=== PATIENT | male | born 1965 | race African-American/Black ===

== ENCOUNTER 2016-05-10 05:25 | Observation (INO) | payer OTHER ==
[2016-05-02 08:53] LABS: HEMATOCRIT 46.1 % (42.0-52.0); HEMOGLOBIN 15.5 gm/dL (14.0-18.0); MCH 27.8 pg (26.0-34.0); MCHC 33.6 g/dL (28.0-37.0); MCV 82.9 fL (80.0-100.0); RBC 5.56 mil/uL (4.50-6.00); RDW 13.9 % (10.5-14.5); URINE BILIRUBIN NEGATIVE (Negative); URINE BLOOD NEGATIVE (Negative); URINE COLOR YELLOW; URINE GLUCOSE-RANDOM* NEGATIVE (Negative); URINE KETONES NEGATIVE (Negative); URINE LEUKOCYTES-REFLEX NEGATIVE (Negative); URINE PROTEIN (DIPSTICK) NEGATIVE (Negative); URINE SPECIFIC GRAVITY 1.025 (1.003-1.035); URINE UROBILINOGEN 0.2 E.U./dl (0.2-1.0); WBC 5.6 thou/uL (4.0-11.0)
[2016-05-02 09:03] LABS: ALBUMIN 4.1 g/dL (3.4-5.0); CALCIUM 9.3 mg/dL (8.5-10.1); CREATININE 1.4 mg/dL (0.6-1.3)
[2016-05-02 09:07] LABS: PROTIME 10.6 Seconds (9.3-11.4)
[~2016-05-10] VITALS: Ht 165.1 cm; Wt 90.7 kg
[2016-05-10] VITALS (7 sets, daily range): BP systolic 115–129; BP diastolic 81–92
--- NOTE | ~2016-05-10 | O ---
[facility] [place] [address] OPERATIVE REPORT Name: LUCAS RUCKER Room #: 544-P [facility] Roscoe Salter#: [id number] Admission: 05/10/16 Attend Phys: Ministerio Simons MD Discharge: 05/10/16 Date of : 65 Report #: [id number] THIS REPORT FOR: //name// CC: Paul Blanco [facility] physician/PCP Ministerio Simons DATE OF SERVICE: 05/10/2016 PREOPERATIVE DIAGNOSIS: Right hip osteoarthritis. POSTOPERATIVE DIAGNOSIS: Right hip osteoarthritis. PROCEDURE: Right total hip arthroplasty. SURGEON: Ministerio Simons MD. MANAGER OF APPLICATION DEVELOPMENT: Magda Gonzalez PA-C. ANESTHESIA: General endotracheal. IMPLANTS: [employer] size 52 R3 acetabular cup with one acetabular screw, size 12, high offset Synergy press-fit stem, with a size 36-3 Oxinium head. ESTIMATED BLOOD LOSS: 100 mL. COMPLICATIONS: None. SPECIMENS: None. CONDITION UPON LEAVING THE OPERATING ROOM: Stable. INDICATIONS FOR PROCEDURE: The patient is a 51-year-old gentleman with right hip osteoarthritis. He previously had a right hip arthroscopy for labral repair, did not receive retirement relief from this. He has had cortisone injections that provided only temporary relief, and after discussion with him, he elected for right total hip arthroplasty. DESCRIPTION OF PROCEDURE: Risks, benefits, alternatives, and complications were discussed in detail with the patient including but not limited to risk of anesthesia, risk of damage to nerves, arteries, blood vessels, risk for infection, bleeding, risk for continued hip pain, leg length discrepancy, instability, and need for reoperation. An informed consent was obtained from the patient. The right hip was appropriately marked in the preoperative holding area. IV Ancef was given for preoperative antibiotics. He was brought to the operating room and placed in the supine position on the operating room table. [address] [address] OPERATIVE REPORT Name: LUCAS RUCKER Room #: 544-P [facility] Roscoe Salter#: [id number] Admission: 05/10/16 Attend Phys: Ministerio Simons MD Discharge: 05/10/16 Date of : 65 Report #: [id number] General endotracheal anesthesia was induced without complication. He was then placed in the left lateral decubitus position with the right hip uppermost. Right hip and lower extremity were prepped and draped in the normal sterile fashion. Timeout was performed, properly identifying the patient and procedure, as well as the instrumentation. All in the operating room were in agreement. Standard posterior approach to the hip was made with #10 blade through the skin. Dissection was taken down the fascia with Bovie cautery. Ugalde elevator was used to clean off the fascia. Fresh #10 blade was used to make a fascial incision. This was taken down proximally and distally with curved Hardwick scissor. Charnley retractor was placed. Trochanteric bursa was taken down with Bovie. The piriformis tendon was identified, tagged and taken down with Bovie. Short external rotators were also taken down with Bovie cautery. Capsulotomy was made and capsular ends were tagged for later repair. The hip was dislocated, and there was osteoarthritic change of the superior femoral head. Femoral neck cut was made 1 cm proximal to lesser trochanter, based on preoperative templating, and the femoral head was removed. Deep acetabular retractors were placed, and the labrum was removed sharply. There was evidence of previous suture labral repair of the anterior superior labrum. This was excised with a #10 blade. Pulvinar was removed with Bovie cautery. The acetabulum was then sequentially reamed up to a size 52. At which point, there was excellent bleeding cancellous bone. A size 51 trial was placed and found to have a good fit. A final size 52 R3 acetabular cup was then seated in the acetabulum. One acetabular screw was placed for backup fixation, and a polyethylene liner for 36 head was placed. After this, attention was turned to the femur. This was reamed and broached up to a size 12, at which point, the size 12 broach was stable. This was trialed with a high offset neck and a 36+0 head. Hip was reduced, taken through range of motion, found to be stable, found to have just slightly long leg length on the right compared to left. It was felt that we could make up for this with the final implant. The broach was removed, and a final size 12 high offset Synergy press fit stem was placed and seated. This was trialed with a 36-3 head. Hip was reduced, taken through range of motion, found to be stable, found to have equal leg lengths. Hip was dislocated again and a final size 36-3 Oxinium head was placed. Hip was reduced, taken through range of motion, found to be stable, found to have equal leg lengths. The wound was thoroughly irrigated with normal saline. Periarticular injection consisting of ropivacaine, morphine, epinephrine, and Toradol was placed around the hip joint. The capsule and piriformis were repaired with 0 FiberWire. The fascia was closed with 0 Vicryl. Skin was closed with 2-0 Vicryl, 3-0 Monocryl, Dermabond, and Aquacel dressing. The patient tolerated this procedure well and went to the recovery room, under the care of anesthesia postoperatively. <ELECTRONICALLY SIGNED> By: Ministerio Simons MD 05/12/16 [id number] Ministerio Simons MD /nt
--- NOTE | ~2016-05-10 | H ---
[facility] [address] [place] [address] HISTORY AND PHYSICAL Name: LUCAS RUCKER Room #: 544-P RYAN Salter#: [id number] Admission: 05/10/16 Attend Phys: Ministerio Simons MD Discharge: 05/10/16 Date of : 65 Report #: [id number] THIS REPORT FOR: //name// For History and Physical, please see office documentation/handwritten note in the patient's medical record. By: 1516 Ministerio Simons MD /
[~2016-05-10 05:25] MED LIST: NORCO 5-325 TA1 EACH PO
[2016-05-10] MEDS ORDERED: MS CONTIN15 MG PO (15:54)
[2016-05-10] MEDS ORDERED: PERCOCET PO (15:54)
[2016-05-10] MEDS ORDERED: CVS BUFFERED A325 MG PO (15:54)
[2016-05-10] MEDS ORDERED: NEURONTIN 300300 M1 PO (15:55)
[2016-05-10] MEDS ORDERED: KEFLEX500 MG PO (15:55)
[2016-05-10] MEDS ORDERED: ULTRA-LIGHT RO1 EACH MC (15:56)
== END 2016-05-10 19:10 | disposition home or self-care (01) ==
LOC: PRE 05:25 → TBA 05:37 → 5S 05:37 → PRE 08:07 → 5S 13:32 → PRE 15:12 → 5S 19:10
PROVIDERS: Orthopaedic Surgery
DX: M16.11 Unilateral primary osteoarthritis, right hip (principal); M24.151 Other articular cartilage disorders, right hip
CPT/HCPCS: 50010; 50101; 50382; 50414; 51412; 51771; 52256; 53000; 53078; 53368; 54118; 56524; 56527; 56528; 56530; 57095; 62110; 62900; 70005

== ENCOUNTER → 2016-07-01 | Outpatient (CLI) | payer OTHER ==
[~2016-07-01] MED LIST changes: +CVS BUFFERED A325 MG PO; +KEFLEX500 MG PO; +MS CONTIN15 MG PO; +NEURONTIN 300300 M1 PO; +PERCOCET PO; +ULTRA-LIGHT RO1 EACH MC
== END ==
LOC: CAT 13:03
DX: Z96.641 Presence of right artificial hip joint (principal)

== ENCOUNTER → 2018-03-16 | Outpatient (CLI) | payer OTHER ==
[~2018-03-16] MED LIST changes: +AMITRIPTYLINE H25 M3 PO; +ASPIR-TRIN325 MG PO; +MOBIC7.5 MG PO; +NEURONTIN600 MG PO; +NORTRIPTYLINE H10 M1 PO; +PERCOCET 7.5-31 EACH PO
[2018-03-16 09:02] LABS: HEMATOCRIT 46.1 % (42.0-52.0); HEMOGLOBIN 15.5 gm/dL (14.0-18.0); MCH 28.1 pg (26.0-34.0); MCHC 33.7 g/dL (28.0-37.0); MCV 83.3 fL (80.0-100.0); RBC 5.54 mil/uL (4.50-6.00); WBC 5.3 thou/uL (4.0-11.0)
[2018-03-16 09:11] LABS: CALCIUM 9.7 mg/dL (8.5-10.1); CREATININE 1.1 mg/dL (0.7-1.3)
[2018-03-16 09:12] LABS: POTASSIUM 4.3 mmol/L (3.5-5.1)
[2018-03-16 09:16] LABS: APTT 26.9 Seconds (24.5-32.8); PROTIME 10.2 Seconds (9.3-11.4)
== END | disposition home or self-care (01) ==
LOC: RAD 08:11
PROVIDERS: Radiology Diagnostic Radiology
DX: M51.27 Other intervertebral disc displacement, lumbosacral region (principal); M25.78 Osteophyte, vertebrae; Z79.891 Long term (current) use of opiate analgesic; Z79.899 Other long term (current) drug therapy; Z79.01 Long term (current) use of anticoagulants